=== PATIENT | female | born 2000 | race Caucasian/White ===

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

== ENCOUNTER 2022-08-08 17:18 | Emergency (ER) | payer MEDICAID ==
[~2022-08-08] VITALS: Ht 160 cm; Wt 77.3 kg
[~2022-08-08 17:18] MED LIST changes: +IBUP-1984 PO; +LEVO75TA7 PO; +LORA-269 PO; +NORE0.3552 PO; +OMEP20CA16 PO; -PRED20TA PO; +TRAZ-251
[2022-08-08 19:09] LABS: BASOPHILS # (AUTO) 0.1 X10'3 (0-0.2); BASOPHILS % (AUTO) 0.5 % (0-1); EOSINOPHILS # (AUTO) 0.2 X10'3 (0-0.9); EOSINOPHILS % (AUTO) 1.3 % (0-6); HEMATOCRIT 38.7 % (35.0-45.0); HEMOGLOBIN 13.2 g/dl (12.0-16.0); LYMPHOCYTES % (AUTO) 22.2 % (21-51); MEAN CORPUSCULAR HEMOGLOBIN 28.7 PG (27.0-31.0); MEAN CORPUSCULAR VOLUME 84.3 FL (78-98); MEAN PLATELET VOLUME 9.4 FL (7.4-10.4); MONOCYTES # (AUTO) 0.7 X10'3 (0-0.9); MONOCYTES % (AUTO) 5.2 % (2-12); NEUTROPHILS # (AUTO) 9.6 X10'3 (1.8-7.7); NEUTROPHILS % (AUTO) 70.8 % (42-75); PLATELET COUNT 285 X10'3 (140-440); RED BLOOD COUNT 4.59 X10'6 (4.20-5.60); RED CELL DISTRIBUTION WIDTH 14.6 % (11.5-14.5); WHITE BLOOD COUNT 13.5 X10'3 (4.5-11.0)
[2022-08-08 19:18] LABS: ALANINE AMINOTRANSFERASE 65 U/L (12-78); ALBUMIN 3.5 G/DL (3.4-5.0); ALBUMIN/GLOBULIN RATIO 0.7 (1.1-1.5); ALKALINE PHOSPHATASE 120 IU/L (46-116); ANION GAP 8 (8-16); ASPARTATE AMINO TRANSFERASE 43 U/L (10-37); BILIRUBIN,TOTAL 0.3 MG/DL (0.1-1.0); BLOOD UREA NITROGEN 11 MG/DL (7-18); BUN/CREATININE RATIO 15.1 (10.0-20.0); CHLORIDE 102 MMOL/L (99-107); CREATININE 0.73 MG/DL (0.40-0.90); GLUCOSE 115 MG/DL (70-104); POTASSIUM 3.6 MMOL/L (3.5-5.1); SODIUM 135 MMOL/L (135-145); TOTAL CARBON DIOXIDE 25.3 MMOL/L (24-32); TOTAL PROTEIN 8.3 G/DL (6.4-8.2); eGFR > 90 ML/MIN
[2022-08-08 19:28] LABS: ETHANOL < 0.010 GM/DL (0.0-0.010)
[2022-08-08] MEDS ORDERED: CARI3CAP PO (21:15)
--- NOTE | 2022-08-08 21:20 | NUR ---
The patient moved to bed 26 from the main ER hallway. She is very cooperative.
[2022-08-08 21:29] LABS: CLARITY,URINE CLEAR (Clear); COLOR,URINE STRAW (Yellow); GLUCOSE, URINE NEGATIVE (Neg); KETONES,URINE NEGATIVE (Neg); LEUKOCYTE ESTERASE ,URINE TRACE (Neg); NITRITES, URINE NEGATIVE (Neg); OCCULT BLOOD,URINE LARGE (Neg); PH,URINE 5.5 (4.8-8.0); PROTEIN,URINE NEGATIVE (Neg); UROBILINOGEN,URINE 0.2 E.U/dL (0.2-1.0)
[2022-08-08] MEDS ORDERED: LEVO100T PO (21:31)
[2022-08-08] MEDS ORDERED: LORA-269 PO (21:31)
[2022-08-08 21:32] LABS: UA COLLECTION TYPE CLN CATCH MIDSTREAM; URINE HCG NEGATIVE (NEG)
[2022-08-08 21:38] LABS: BACTERIA,URINE 1+ /HPF (Neg); SQUAMOUS EPITHELIAL CELL,UR FEW /LPF (FEW)
[2022-08-08] MEDS ORDERED: acetaminophen 325mg tablet PO ONE (21:40)
[2022-08-08 21:42] LABS: URINE AMPHETAMINE SCREEN NEGATIVE (Neg); URINE BARBITUATE SCREEN NEGATIVE (Neg); URINE BENZODIAZEPINES SCREEN NEGATIVE (Neg); URINE CANNABINOID SCREEN NEGATIVE (Neg); URINE COCAINE SCREEN NEGATIVE (Neg); URINE METHADONE SCREEN NEGATIVE (Neg); URINE OPIATE SCREEN NEGATIVE (Neg); URINE PHENCYCLIDINE SCREEN NEGATIVE (Neg)
[2022-08-08] MEDS ORDERED: LORazepam 1 MG tablet PO PRN (21:55)
[2022-08-08] MEDS ORDERED: LORazepam 0.5 MG tablet PO PRN (22:00)
--- NOTE | 2022-08-08 22:18 | NUR ---
packet sent to [facility]
[2022-08-08] MEDS ORDERED: CARIPRAZINE 1.5 MG CAPSULE PO SCH (22:40)
--- NOTE | 2022-08-09 01:24 | NUR ---
The patient appears to be sleeping
--- NOTE | 2022-08-09 03:08 | NUR ---
The patient appears to be sleeping
--- NOTE | 2022-08-09 05:19 | NUR ---
The patient appears to be sleeping
[2022-08-09 05:57] VITALS: BP 117/65
[2022-08-09] MEDS ORDERED: levoTHYROXINE 100mcg tablet PO SCH (08:00)
--- NOTE | 2022-08-09 11:50 | NUR ---
[facility] called and wanted to review patients current medication. Medications reviewed. Pt requesting anti-nausea and menstrual cramp relief medication. Message to Dr. Daley.
[2022-08-09] MEDS ORDERED: ondansetron 4mg rapidly disintigrating tab PO ONE (11:55)
[2022-08-09] MEDS ORDERED: ibuprofen tablet 400 MG TABLET PO ONE (12:00)
--- NOTE | 2022-08-09 12:52 | NUR ---
[facility] [place] called for a nurse to nurse report. [phone]
--- NOTE | 2022-08-09 13:27 | NUR ---
[facility] called for a nurse to nurse report on pt for possible acceptance.
--- NOTE | 2022-08-09 13:28 | NUR ---
[facility] called for nurse to nurse report. pT HAS BEEN TO THIS FACILTY PRIOR.
--- NOTE | 2022-08-09 14:04 | NUR ---
[facility] CALLED AND [facility]LE[facility]ARE IN [place] IS ACCEPTING PATIENT. [phone] ACCEPTED PT. PT TO BE TRANSFERRED SOON RIDE IS AVAILABLE.
--- NOTE | 2022-08-09 15:51 | NUR ---
[facility] HERE TO NEGATIVE TURNER APPRENTICE PATIENT TO TAKE HER TO [facility]. ORIGINAL 5150 GIVEN TO BINDERY MANAGER. BELONGINGS RETURNED TO PT WHO CHANGED INTO HER OWN CLOTHING. SECURITY HERE TO ESCORT PT TO AWAITING RIDE.
[2022-08-09] MEDS ORDERED: CARIPRAZINE 1.5 MG CAPSULE PO SCH (21:00)
== END 2022-08-09 15:58 ==
LOC: ER 17:20
DX: F32.A Depression, unspecified (principal); Z20.822 Contact with and (suspected) exposure to COVID-19; R45.851 Suicidal ideations; F41.9 Anxiety disorder, unspecified; F12.10 Cannabis abuse, uncomplicated; Z88.2 Allergy status to sulfonamides; Z88.5 Allergy status to narcotic agent; Z79.899 Other long term (current) drug therapy
CPT/HCPCS: 36415; 80053; 80305; 80320; 81001; 81025; 84443; 85025; 87811; 99285; A6223; A6258; A6449

== ENCOUNTER 2022-09-02 13:53 | Emergency (ER) | payer MEDICAID ==
[~2022-09-02] VITALS: Ht 157.5 cm; Wt 81.0 kg
[~2022-09-02 13:53] MED LIST changes: +CARI3CAP PO; -IBUP-1984 PO; +LEVO100T PO; -LEVO75TA7 PO; -NORE0.3552 PO; -OMEP20CA16 PO; -TRAZ-251
[2022-09-02 14:58] LABS: BASOPHILS # (AUTO) 0.1 X10'3 (0-0.2); BASOPHILS % (AUTO) 0.5 % (0-1); EOSINOPHILS # (AUTO) 0.2 X10'3 (0-0.9); EOSINOPHILS % (AUTO) 1.2 % (0-6); HEMATOCRIT 37.7 % (35.0-45.0); HEMOGLOBIN 12.2 g/dl (12.0-16.0); LYMPHOCYTES # (AUTO) 3.2 X10'3 (1.1-4.8); LYMPHOCYTES % (AUTO) 24.1 % (21-51); MEAN CORPUSCULAR HEMOGLOBIN 27.8 PG (27.0-31.0); MEAN CORPUSCULAR HGB CONC 32.4 g/dL (33.0-36.5); MEAN CORPUSCULAR VOLUME 85.9 FL (78-98); MEAN PLATELET VOLUME 9.3 FL (7.4-10.4); MONOCYTES # (AUTO) 0.7 X10'3 (0-0.9); MONOCYTES % (AUTO) 5.5 % (2-12); NEUTROPHILS # (AUTO) 9.3 X10'3 (1.8-7.7); NEUTROPHILS % (AUTO) 68.7 % (42-75); PLATELET COUNT 338 X10'3 (140-440); RED BLOOD COUNT 4.39 X10'6 (4.20-5.60); RED CELL DISTRIBUTION WIDTH 14.9 % (11.5-14.5); WHITE BLOOD COUNT 13.5 X10'3 (4.5-11.0)
[2022-09-02 15:15] LABS: ALANINE AMINOTRANSFERASE 50 U/L (12-78); ALBUMIN 3.7 G/DL (3.4-5.0); ALBUMIN/GLOBULIN RATIO 0.8 (1.1-1.5); ALKALINE PHOSPHATASE 119 IU/L (46-116); ANION GAP 8 (8-16); ASPARTATE AMINO TRANSFERASE 34 U/L (10-37); BILIRUBIN,TOTAL 0.3 MG/DL (0.1-1.0); BLOOD UREA NITROGEN 12 MG/DL (7-18); BUN/CREATININE RATIO 15.6 (10.0-20.0); CALCIUM 9.4 MG/DL (8.5-10.1); CHLORIDE 102 MMOL/L (99-107); CREATININE 0.77 MG/DL (0.40-0.90); GLUCOSE 90 MG/DL (70-104); LIPASE 73 U/L (73-393); POTASSIUM 3.8 MMOL/L (3.5-5.1); SODIUM 138 MMOL/L (135-145); TOTAL CARBON DIOXIDE 28.1 MMOL/L (24-32); TOTAL PROTEIN 8.5 G/DL (6.4-8.2); eGFR > 90 ML/MIN
[2022-09-02] MEDS ORDERED: ondansetron 4mg rapidly disintigrating tab PO ONE (16:05)
[2022-09-02 16:30] VITALS: BP 107/69
[2022-09-02 16:33] LABS: URINE HCG NEGATIVE (NEG)
[2022-09-02 16:39] LABS: CLARITY,URINE CLOUDY (Clear); COLOR,URINE YELLOW (Yellow); GLUCOSE, URINE NEGATIVE (Neg); KETONES,URINE NEGATIVE (Neg); LEUKOCYTE ESTERASE ,URINE TRACE (Neg); NITRITES, URINE POSITIVE (Neg); OCCULT BLOOD,URINE MODERATE (Neg); PROTEIN,URINE 100 mg/dl (Neg)
[2022-09-02 16:41] LABS: UA COLLECTION TYPE VOIDED
[2022-09-02 16:45] LABS: SQUAMOUS EPITHELIAL CELL,UR MANY /LPF (FEW)
[2022-09-02 16:46] LABS: BACTERIA,URINE 4+ /HPF (Neg); RBC,URINE TNTC /HPF (0-2); WBC,URINE TNTC /HPF (0-4)
[2022-09-02 16:47] LABS: COARSE GRANULAR CAST 0-3 /LPF (NEGATIVE)
--- NOTE | 2022-09-02 16:48 | NUR ---
REJECTED URINE FOR CULTURE
[2022-09-02] MEDS ORDERED: ONDA4TAB12 PO (17:13)
[2022-09-02] MEDS ORDERED: CEPH-585 PO (17:13)
== END 2022-09-02 17:41 | disposition home or self-care (01) ==
LOC: ER 13:54
DX: K92.0 Hematemesis (principal); N39.0 Urinary tract infection, site not specified; F31.9 Bipolar disorder, unspecified; F12.90 Cannabis use, unspecified, uncomplicated; Z88.2 Allergy status to sulfonamides; Z88.5 Allergy status to narcotic agent; E03.9 Hypothyroidism, unspecified
CPT/HCPCS: 36415; 80053; 81001; 81025; 83690; 85025; 99283

== ENCOUNTER 2023-02-03 16:25 | Emergency (ER) | payer MEDICAID ==
[~2023-02-03] VITALS: Ht 167.6 cm; Wt 83.0 kg
[~2023-02-03 16:25] MED LIST changes: +CEPH-585 PO; +ONDA4TAB12 PO
[2023-02-03] MEDS ORDERED: acetaminophen 1,000mg/100ml IV 100 ML IV STA (18:54)
[2023-02-03] MEDS ORDERED: normal saline 1000ML IV soln IVB ONE ×2 (18:55→21:30)
[2023-02-03] MEDS ORDERED: ondansetron/PF 4mg/2ml inj IV ONE (18:55)
[2023-02-03 18:57] LABS: BASOPHILS # (AUTO) 0.1 X10'3 (0-0.2); BASOPHILS % (AUTO) 0.4 % (0-1); EOSINOPHILS # (AUTO) 0.1 X10'3 (0-0.9); EOSINOPHILS % (AUTO) 0.9 % (0-6); HEMATOCRIT 43.6 % (35.0-45.0); HEMOGLOBIN 14.4 g/dl (12.0-16.0); LYMPHOCYTES # (AUTO) 1.4 X10'3 (1.1-4.8); LYMPHOCYTES % (AUTO) 11.2 % (21-51); MEAN CORPUSCULAR HEMOGLOBIN 28.2 PG (27.0-31.0); MEAN CORPUSCULAR HGB CONC 32.9 g/dL (33.0-36.5); MEAN CORPUSCULAR VOLUME 85.8 FL (78-98); MEAN PLATELET VOLUME 9.7 FL (7.4-10.4); MONOCYTES # (AUTO) 0.5 X10'3 (0-0.9); MONOCYTES % (AUTO) 4.2 % (2-12); NEUTROPHILS # (AUTO) 10.5 X10'3 (1.8-7.7); NEUTROPHILS % (AUTO) 83.3 % (42-75); PLATELET COUNT 264 X10'3 (140-440); RED BLOOD COUNT 5.09 X10'6 (4.20-5.60); RED CELL DISTRIBUTION WIDTH 15.9 % (11.5-14.5); WHITE BLOOD COUNT 12.6 X10'3 (4.5-11.0)
[2023-02-03 19:02] LABS: URINE HCG NEGATIVE (NEG)
[2023-02-03 19:05] LABS: BILIRUBIN,URINE SMALL (Neg); CLARITY,URINE TURBID (Clear); COLOR,URINE AMBER (Yellow); GLUCOSE, URINE NEGATIVE (Neg); KETONES,URINE NEGATIVE (Neg); LEUKOCYTE ESTERASE ,URINE MODERATE (Neg); NITRITES, URINE NEGATIVE (Neg); OCCULT BLOOD,URINE LARGE (Neg); PH,URINE 5.5 (4.8-8.0); PROTEIN,URINE 30 mg/dl (Neg); UROBILINOGEN,URINE 0.2 E.U/dL (0.2-1.0)
[2023-02-03 19:07] LABS: ALANINE AMINOTRANSFERASE 73 U/L (12-78); ALBUMIN 4.2 G/DL (3.4-5.0); ALBUMIN/GLOBULIN RATIO 0.8 (1.1-1.5); ALKALINE PHOSPHATASE 131 IU/L (46-116); ANION GAP 10 (8-16); ASPARTATE AMINO TRANSFERASE 48 U/L (10-37); BILIRUBIN,TOTAL 0.8 MG/DL (0.1-1.0); BLOOD UREA NITROGEN 12 MG/DL (7-18); BUN/CREATININE RATIO 12.5 (10.0-20.0); CALCIUM 9.6 MG/DL (8.5-10.1); CHLORIDE 101 MMOL/L (99-107); CREATININE 0.96 MG/DL (0.40-0.90); GLUCOSE 93 MG/DL (70-104); POTASSIUM 3.9 MMOL/L (3.5-5.1); SODIUM 136 MMOL/L (135-145); TOTAL PROTEIN 9.7 G/DL (6.4-8.2); eCRCL 86 ML/MIN; eGFR 73 ML/MIN
[2023-02-03 19:09] LABS: UA COLLECTION TYPE CLN CATCH MIDSTREAM
[2023-02-03 19:11] LABS: BACTERIA,URINE 4+ /HPF (Neg); MUCUS STRANDS FEW /LPF (Neg); SQUAMOUS EPITHELIAL CELL,UR MANY /LPF (FEW)
[2023-02-03 19:15] LABS: WBC,URINE TNTC /HPF (0-4)
[2023-02-03] MEDS ORDERED: CefTRIAXone/D5W-Rocephin 1gm 50 ML IV ONE (19:35)
[2023-02-03 19:37] LABS: BETA HCG,QUANTITATIVE < 1.0 mIU/ml
[2023-02-03 19:39] LABS: LIPASE 20 U/L (16-77)
[2023-02-03 22:30] VITALS: BP 130/83; PULSE 93; RESP 16; TEMP 98.5; O2SAT 98
[2023-02-03] MEDS ORDERED: ONDA4TAB12 PO (23:02)
[2023-02-03] MEDS ORDERED: CEPH-585 PO (23:02)
== END 2023-02-03 23:19 | disposition home or self-care (01) ==
LOC: ER 16:27
DX: N39.0 Urinary tract infection, site not specified (principal)
CPT/HCPCS: 36415; 74176; 80053; 81001; 81025; 83690; 84702; 85025; 86885; 86900; 86901; 87088; 96365; 96366; 96368; 96375; 99285; J0131; J0696; J2405; J7030

== ENCOUNTER 2023-12-21 09:32 | Emergency (ER) | payer MEDICAID ==
[~2023-12-21] VITALS: Ht 160 cm; Wt 90.2 kg
[~2023-12-21 09:32] MED LIST changes: +ONDA-243 PO; -ONDA4TAB12 PO
[2023-12-21 11:09] LABS: BASOPHILS # (AUTO) 0.1 X10'3 (0-0.2); EOSINOPHILS # (AUTO) 0.2 X10'3 (0-0.9); EOSINOPHILS % (AUTO) 1.9 % (0-6); HEMOGLOBIN 12.4 g/dl (12.0-16.0); LYMPHOCYTES # (AUTO) 2.1 X10'3 (1.1-4.8); LYMPHOCYTES % (AUTO) 21.9 % (21-51); MEAN CORPUSCULAR HEMOGLOBIN 27.1 PG (27.0-31.0); MEAN CORPUSCULAR HGB CONC 32.6 g/dL (33.0-36.5); MEAN CORPUSCULAR VOLUME 83.1 FL (78-98); MEAN PLATELET VOLUME 10.2 FL (7.4-10.4); MONOCYTES # (AUTO) 0.6 X10'3 (0-0.9); MONOCYTES % (AUTO) 5.7 % (2-12); NEUTROPHILS # (AUTO) 6.8 X10'3 (1.8-7.7); NEUTROPHILS % (AUTO) 69.5 % (42-75); PLATELET COUNT 284 X10'3 (140-440); RED BLOOD COUNT 4.57 X10'6 (4.20-5.60); RED CELL DISTRIBUTION WIDTH 15.3 % (11.5-14.5); WHITE BLOOD COUNT 9.7 X10'3 (4.5-11.0)
[2023-12-21 11:31] LABS: BILIRUBIN,URINE NEGATIVE (Neg); CLARITY,URINE SLIGHTLY CLOUDY (Clear); COLOR,URINE YELLOW (Yellow); GLUCOSE, URINE NEGATIVE (Neg); KETONES,URINE NEGATIVE (Neg); LEUKOCYTE ESTERASE ,URINE SMALL (Neg); NITRITES, URINE POSITIVE (Neg); OCCULT BLOOD,URINE SMALL (Neg); PH,URINE 6.5 (4.8-8.0); PROTEIN,URINE NEGATIVE (Neg); UROBILINOGEN,URINE 0.2 E.U/dL (0.2-1.0)
[2023-12-21 11:33] LABS: URINE HCG NEGATIVE (NEG)
[2023-12-21 11:35] LABS: UA COLLECTION TYPE CLN CATCH MIDSTREAM
[2023-12-21 11:39] LABS: BACTERIA,URINE 4+ /HPF (Neg); MUCUS STRANDS NONE SEEN /LPF (Neg); SQUAMOUS EPITHELIAL CELL,UR MODERATE /LPF (FEW); WBC CLUMPS,URINE FEW /HPF (NEGATIVE); WBC,URINE 30-50 /HPF (0-4)
[2023-12-21 11:56] LABS: URINE AMPHETAMINE SCREEN NEGATIVE (Neg); URINE BARBITUATE SCREEN NEGATIVE (Neg); URINE BENZODIAZEPINES SCREEN NEGATIVE (Neg); URINE CANNABINOID SCREEN POSITIVE (Neg); URINE COCAINE SCREEN NEGATIVE (Neg); URINE METHADONE SCREEN NEGATIVE (Neg); URINE OPIATE SCREEN NEGATIVE (Neg); URINE PHENCYCLIDINE SCREEN NEGATIVE (Neg)
[2023-12-21 12:32] LABS: ALBUMIN 3.3 G/DL (3.4-5.0); ANION GAP 11 (8-16); BLOOD UREA NITROGEN 13 MG/DL (7-18); BUN/CREATININE RATIO 15.5 (10.0-20.0); CALCIUM 8.9 MG/DL (8.5-10.1); CHLORIDE 97 MMOL/L (99-107); CREATININE 0.84 MG/DL (0.40-0.90); ETHANOL < 10 MG/DL (<10); GLUCOSE 110 MG/DL (70-104); POTASSIUM 3.4 MMOL/L (3.5-5.1); SALICYLATE 4.8 MG/DL (4.0-20.0); SODIUM 132 MMOL/L (135-145); THYROID STIMULATING HORMONE 16.39 ulU/ml (0.34-4.50); TOTAL CARBON DIOXIDE 23.7 MMOL/L (24-32); eCRCL 86 ML/MIN; eGFR 84 ML/MIN
[2023-12-21 12:44] LABS: ACETAMINOPHEN < 2.0 UG/ML (10-30)
[2023-12-21] MEDS ORDERED: LEVO100T9 PO (15:48)
[2023-12-21] MEDS ORDERED: CHOL500050 PO (15:48)
[2023-12-21 16:47] VITALS: BP 123/68; PULSE 97; RESP 14; TEMP 98.4; O2SAT 97
== END 2023-12-21 16:50 | disposition home or self-care (01) ==
LOC: ER 09:33
DX: T50.992A Poisoning by other drugs, medicaments and biological substances, intentional self-harm, initial encounter (principal); Z20.822 Contact with and (suspected) exposure to COVID-19; E03.9 Hypothyroidism, unspecified; F32.A Depression, unspecified; Z88.2 Allergy status to sulfonamides; Z79.899 Other long term (current) drug therapy; Z79.2 Long term (current) use of antibiotics; Y92.89 Other specified places as the place of occurrence of the external cause
CPT/HCPCS: 36415; 80048; 80305; 80320; 80329; 81001; 81025; 84443; 85025; 87811; 93005; 99285

== ENCOUNTER 2024-02-01 14:58 | Emergency (ER) | payer MEDICAID ==
[~2024-02-01] VITALS: Ht 157.5 cm; Wt 90.6 kg
[~2024-02-01 14:58] MED LIST changes: +CHOL500050 PO
[2024-02-01 15:21] VITALS: TEMP 98.2
[2024-02-01 15:37] LABS: BASOPHILS # (AUTO) 0.1 X10'3 (0-0.2); BASOPHILS % (AUTO) 0.4 % (0-1); EOSINOPHILS # (AUTO) 0.3 X10'3 (0-0.9); EOSINOPHILS % (AUTO) 2.7 % (0-6); HEMATOCRIT 35.4 % (35.0-45.0); HEMOGLOBIN 11.5 g/dl (12.0-16.0); LYMPHOCYTES # (AUTO) 2.7 X10'3 (1.1-4.8); LYMPHOCYTES % (AUTO) 22.5 % (21-51); MEAN CORPUSCULAR HEMOGLOBIN 27.4 PG (27.0-31.0); MEAN CORPUSCULAR HGB CONC 32.4 g/dL (33.0-36.5); MEAN CORPUSCULAR VOLUME 84.5 FL (78-98); MEAN PLATELET VOLUME 9.9 FL (7.4-10.4); MONOCYTES # (AUTO) 0.6 X10'3 (0-0.9); MONOCYTES % (AUTO) 4.7 % (2-12); NEUTROPHILS # (AUTO) 8.4 X10'3 (1.8-7.7); NEUTROPHILS % (AUTO) 69.7 % (42-75); PLATELET COUNT 295 X10'3 (140-440); RED BLOOD COUNT 4.18 X10'6 (4.20-5.60); RED CELL DISTRIBUTION WIDTH 15.9 % (11.5-14.5); WHITE BLOOD COUNT 12.1 X10'3 (4.5-11.0)
[2024-02-01 15:46] LABS: APTT 28 SECONDS (22-32); PROTHROMBIN TIME 10.5 SECONDS (9.0-12.0)
[2024-02-01 15:48] LABS: ALANINE AMINOTRANSFERASE 47 U/L (12-78); ALBUMIN 3.1 G/DL (3.4-5.0); ALBUMIN/GLOBULIN RATIO 0.7 (1.1-1.5); ALKALINE PHOSPHATASE 114 IU/L (46-116); ANION GAP 8 (8-16); ASPARTATE AMINO TRANSFERASE 28 U/L (10-37); BILIRUBIN,TOTAL 0.2 MG/DL (0.1-1.0); BLOOD UREA NITROGEN 13 MG/DL (7-18); BUN/CREATININE RATIO 13.1 (10.0-20.0); CALCIUM 8.6 MG/DL (8.5-10.1); CHLORIDE 105 MMOL/L (99-107); CREATININE 0.99 MG/DL (0.40-0.90); GLUCOSE 110 MG/DL (70-104); POTASSIUM 3.6 MMOL/L (3.5-5.1); SODIUM 140 MMOL/L (135-145); TOTAL CARBON DIOXIDE 27.3 MMOL/L (24-32); TOTAL PROTEIN 7.7 G/DL (6.4-8.2); eCRCL 70 ML/MIN; eGFR 70 ML/MIN
[2024-02-01 15:55] LABS: HCG SERUM QL NEGATIVE
[2024-02-01 19:01] LABS: BETA HCG,QUANTITATIVE < 1.0 mIU/ml
[2024-02-01 19:10] LABS: CLARITY,URINE CLOUDY (Clear); COLOR,URINE BROWN (Yellow)
[2024-02-01 19:13] LABS: URINE HCG NEGATIVE (NEG)
[2024-02-01 19:34] LABS: UA COLLECTION TYPE CLN CATCH MIDSTREAM
[2024-02-01 19:38] LABS: RBC,URINE TNTC /HPF (0-2); SQUAMOUS EPITHELIAL CELL,UR MANY /LPF (FEW)
[2024-02-01 19:41] LABS: BACTERIA,URINE 2+ /HPF (Neg); WBC,URINE 20-30 /HPF (0-4)
[2024-02-01 19:52] VITALS: BP 116/82; PULSE 92; RESP 16; O2SAT 99
[2024-02-04] MEDS ORDERED: CEFU250T95 PO (09:15)
== END 2024-02-01 21:11 | disposition home or self-care (01) ==
LOC: EEVIPCON 14:59 → ER 14:59
DX: N93.8 Other specified abnormal uterine and vaginal bleeding (principal); E03.9 Hypothyroidism, unspecified; E28.2 Polycystic ovarian syndrome; F12.90 Cannabis use, unspecified, uncomplicated; Z88.1 Allergy status to other antibiotic agents; Z88.2 Allergy status to sulfonamides; Z88.5 Allergy status to narcotic agent
CPT/HCPCS: 36415; 76856; 80053; 81001; 81025; 84702; 84703; 85025; 85610; 85730; 87077; 87088; 87186; 93976; 99284

== ENCOUNTER 2024-04-11 15:14 | Emergency (ER) | payer MEDICAID ==
[~2024-04-11] VITALS: Ht 157.5 cm; Wt 86.4 kg
[~2024-04-11 15:14] MED LIST changes: -CEPH-585 PO
[2024-04-11 16:44] LABS: BILIRUBIN,URINE NEGATIVE (Neg); CLARITY,URINE CLOUDY (Clear); COLOR,URINE YELLOW (Yellow); GLUCOSE, URINE NEGATIVE (Neg); KETONES,URINE NEGATIVE (Neg); LEUKOCYTE ESTERASE ,URINE MODERATE (Neg); NITRITES, URINE POSITIVE (Neg); OCCULT BLOOD,URINE NEGATIVE (Neg); PROTEIN,URINE NEGATIVE (Neg); UROBILINOGEN,URINE 0.2 E.U/dL (0.2-1.0)
[2024-04-11 16:46] LABS: UA COLLECTION TYPE VOIDED; URINE HCG NEGATIVE (NEG)
[2024-04-11 16:50] LABS: BACTERIA,URINE 4+ /HPF (Neg); MUCUS STRANDS MODERATE /LPF (Neg); RBC,URINE NONE SEEN /HPF (0-2); SQUAMOUS EPITHELIAL CELL,UR MANY /LPF (FEW)
[2024-04-11 16:59] LABS: URINE AMPHETAMINE SCREEN NEGATIVE (Neg); URINE BARBITUATE SCREEN NEGATIVE (Neg); URINE BENZODIAZEPINES SCREEN NEGATIVE (Neg); URINE CANNABINOID SCREEN POSITIVE (Neg); URINE COCAINE SCREEN NEGATIVE (Neg); URINE METHADONE SCREEN NEGATIVE (Neg); URINE OPIATE SCREEN NEGATIVE (Neg); URINE PHENCYCLIDINE SCREEN NEGATIVE (Neg)
[2024-04-11 17:02] LABS: BASOPHILS # (AUTO) 0.1 X10'3 (0-0.2); BASOPHILS % (AUTO) 0.6 % (0-1); EOSINOPHILS # (AUTO) 0.2 X10'3 (0-0.9); EOSINOPHILS % (AUTO) 1.9 % (0-6); HEMATOCRIT 34.8 % (35.0-45.0); HEMOGLOBIN 11.4 g/dl (12.0-16.0); LYMPHOCYTES # (AUTO) 2.9 X10'3 (1.1-4.8); LYMPHOCYTES % (AUTO) 24.5 % (21-51); MEAN CORPUSCULAR HEMOGLOBIN 26.5 PG (27.0-31.0); MEAN CORPUSCULAR HGB CONC 32.8 g/dL (33.0-36.5); MEAN CORPUSCULAR VOLUME 80.9 FL (78-98); MEAN PLATELET VOLUME 9.3 FL (7.4-10.4); MONOCYTES # (AUTO) 0.6 X10'3 (0-0.9); MONOCYTES % (AUTO) 4.9 % (2-12); NEUTROPHILS % (AUTO) 68.1 % (42-75); PLATELET COUNT 304 X10'3 (140-440); RED CELL DISTRIBUTION WIDTH 14.8 % (11.5-14.5); WHITE BLOOD COUNT 11.8 X10'3 (4.5-11.0)
[2024-04-11 17:23] LABS: ALBUMIN 3.3 G/DL (3.4-5.0); ANION GAP 6 (8-16); BLOOD UREA NITROGEN 15 MG/DL (7-18); BUN/CREATININE RATIO 15.8 (10.0-20.0); CALCIUM 8.7 MG/DL (8.5-10.1); CHLORIDE 106 MMOL/L (99-107); CREATININE 0.95 MG/DL (0.40-0.90); ETHANOL < 10 MG/DL (<10); GLUCOSE 111 MG/DL (70-104); POTASSIUM 3.8 MMOL/L (3.5-5.1); SODIUM 143 MMOL/L (135-145); THYROID STIMULATING HORMONE 8.75 ulU/ml (0.34-4.50); TOTAL CARBON DIOXIDE 31.4 MMOL/L (24-32); eCRCL 73 ML/MIN; eGFR 73 ML/MIN
[2024-04-11] MEDS: hydrOXYzine 25 MG tablet PO ONE (20:10)
[2024-04-11] MEDS: LORazepam 1 MG tablet PO ONE (20:10)
[2024-04-12 05:35] VITALS: BP 116/62; PULSE 79; O2SAT 98
[2024-04-12] MEDS ORDERED: LORazepam 0.5 MG tablet PO PRN (07:00)
[2024-04-12] MEDS: cholecalciferol (vitamin D3) 1,000 unit (25mcg) tablet PO SCH (08:00)
[2024-04-12] MEDS: levoTHYROXINE 100mcg tablet PO SCH (09:25)
[2024-04-12 11:18] VITALS: RESP 14
[2024-04-12 12:12] VITALS: TEMP 98.3
[2024-04-12] MEDS ORDERED: CARIPRAZINE 3 MG CAP PO SCH (21:00)
== END 2024-04-12 12:18 | disposition home or self-care (01) ==
LOC: ER 15:15
DX: T74.21XA Adult sexual abuse, confirmed, initial encounter (principal); R45.88 Nonsuicidal self-harm; S51.811A Laceration without foreign body of right forearm, initial encounter; S80.211A Abrasion, right knee, initial encounter; E03.9 Hypothyroidism, unspecified; F32.A Depression, unspecified; F12.90 Cannabis use, unspecified, uncomplicated; Z88.2 Allergy status to sulfonamides; Z88.5 Allergy status to narcotic agent; Z79.899 Other long term (current) drug therapy; Z20.822 Contact with and (suspected) exposure to COVID-19; Y93.89 Activity, other specified; Y92.89 Other specified places as the place of occurrence of the external cause; Y99.8 Other external cause status
CPT/HCPCS: 36415; 80048; 80305; 80320; 81001; 81025; 84443; 85025; 87811; 99285; Q0177

== ENCOUNTER 2024-09-08 12:37 | Emergency (ER) | payer MEDICAID ==
[~2024-09-08] VITALS: Ht 157.5 cm; Wt 87.3 kg
[2024-09-08 12:43] VITALS: BP 131/85; PULSE 101; TEMP 98.6; O2SAT 98
[2024-09-08 14:09] LABS: BASOPHILS # (AUTO) 0.1 X10'3 (0-0.2); BASOPHILS % (AUTO) 0.6 % (0-1); EOSINOPHILS # (AUTO) 0.2 X10'3 (0-0.9); EOSINOPHILS % (AUTO) 1.8 % (0-6); HEMATOCRIT 36.5 % (35.0-45.0); HEMOGLOBIN 11.8 g/dl (12.0-16.0); LYMPHOCYTES # (AUTO) 1.5 X10'3 (1.1-4.8); LYMPHOCYTES % (AUTO) 14.6 % (21-51); MEAN CORPUSCULAR HEMOGLOBIN 26.7 PG (27.0-31.0); MEAN CORPUSCULAR HGB CONC 32.4 g/dL (33.0-36.5); MEAN CORPUSCULAR VOLUME 82.5 FL (78-98); MEAN PLATELET VOLUME 9.7 FL (7.4-10.4); MONOCYTES # (AUTO) 0.5 X10'3 (0-0.9); MONOCYTES % (AUTO) 4.8 % (2-12); NEUTROPHILS # (AUTO) 8.1 X10'3 (1.8-7.7); NEUTROPHILS % (AUTO) 78.2 % (42-75); PLATELET COUNT 245 X10'3 (140-440); RED BLOOD COUNT 4.42 X10'6 (4.20-5.60); RED CELL DISTRIBUTION WIDTH 14.7 % (11.5-14.5); WHITE BLOOD COUNT 10.3 X10'3 (4.5-11.0)
[2024-09-08 14:29] LABS: ALANINE AMINOTRANSFERASE 50 U/L (12-78); ALBUMIN 3.2 G/DL (3.4-5.0); ALBUMIN/GLOBULIN RATIO 0.8 (1.1-1.5); ALKALINE PHOSPHATASE 116 IU/L (46-116); ANION GAP 6 (8-16); ASPARTATE AMINO TRANSFERASE 31 U/L (10-37); BILIRUBIN,TOTAL 0.3 MG/DL (0.1-1.0); BLOOD UREA NITROGEN 11 MG/DL (7-18); BUN/CREATININE RATIO 16.2 (10.0-20.0); CALCIUM 8.8 MG/DL (8.5-10.1); CHLORIDE 105 MMOL/L (99-107); CREATININE 0.68 MG/DL (0.40-0.90); GLUCOSE 99 MG/DL (70-104); LIPASE 20 U/L (16-77); POTASSIUM 4.3 MMOL/L (3.5-5.1); SODIUM 140 MMOL/L (135-145); TOTAL CARBON DIOXIDE 28.7 MMOL/L (24-32); TOTAL PROTEIN 7.4 G/DL (6.4-8.2); eCRCL 101 ML/MIN; eGFR > 90 ML/MIN
[2024-09-08 14:43] LABS: URINE HCG NEGATIVE (NEG)
[2024-09-08 14:45] LABS: BILIRUBIN,URINE NEGATIVE (Neg); CLARITY,URINE CLEAR (Clear); COLOR,URINE YELLOW (Yellow); GLUCOSE, URINE NEGATIVE (Neg); KETONES,URINE NEGATIVE (Neg); LEUKOCYTE ESTERASE ,URINE NEGATIVE (Neg); NITRITES, URINE NEGATIVE (Neg); OCCULT BLOOD,URINE TRACE-INTACT (Neg); PROTEIN,URINE NEGATIVE (Neg); UROBILINOGEN,URINE 0.2 E.U/dL (0.2-1.0)
[2024-09-08 14:53] LABS: UA COLLECTION TYPE CLN CATCH MIDSTREAM
[2024-09-08 14:54] LABS: BACTERIA,URINE NONE SEEN /HPF (Neg); RBC,URINE 0-2 /HPF (0-2); WBC,URINE NONE SEEN /HPF (0-4)
[2024-09-08 14:55] LABS: MUCUS STRANDS MODERATE /LPF (Neg); SQUAMOUS EPITHELIAL CELL,UR FEW /LPF (FEW); TRANSITIONAL EPI CELLS,URINE FEW /HPF
[2024-09-08] MEDS ORDERED: NAPR-56 PO (15:24)
--- NOTE | 2024-09-08 15:24 | Physician Documentation ---
History of Present Illness Chief Complaint: Flank Pain Stated Complaint: KIDNEY INFECTION Time Seen by MD: 13:15 Primary Medical Doctor: [facility] [place] HPI 24-year-old female presents to the ED with several days of lumbar pain. She states she was diagnosed with a kidney infection by her doctor. Placed on antibiotics. Also states that she has has nausea and and has difficulty holding food down. Denies any fevers however. He is that her lumbar region is tender to palpation.. Denies any acute injury. Day of Onset: September 08, 2024 Medication Reconciliation Allergies: Coded Allergies: Sulfa (Sulfonamide Antibiotics) (Verified Allergy, Unknown, 09/08/24) morphine (Verified Allergy, Unknown, 09/08/24) Uncoded Allergies: ESTROGEN (Allergy, Unknown, 12/18/19) Scheduled Cariprazine Hydrochloride (Vraylar), 1 CAP PO HS, (Reported) Cholecalciferol (Vitamin D3) (Vitamin D3), 1 CAP PO DAILY, (Reported) Levothyroxine Sodium (Synthroid), 1 TAB PO DAILY, (Reported) Naproxen (Naproxen), 1 TAB PO Q12H Scheduled PRN Lorazepam (Ativan), 0.5 TAB PO DAILY PRN for for anxiety/agitation, (Reported) ONDANSETRON ODT 4mg tablet (Ondansetron Odt), 1 TABLET PO Q6H PRN for nausea/vomiting ONDANSETRON ODT 4mg tablet (Ondansetron Odt), 1 TABLET PO Q6H PRN for nausea/vomiting ONDANSETRON ODT 4mg tablet (Ondansetron Odt), 1 TAB PO Q6H PRN PRN for nausea/vomiting Past Medical History Past Medical History: Hypothyroidism, Bipolar, Depression Past Surgical History: no surgical history Alcohol Use: None Drug Use: marijuana Lives with: Father Lives In: Home Occupation: employed Review of Systems All Other Systems at this time: Reviewed and Negative ROS As stated above in the HPI, otherwise all systems are reviewed and negative. Physical Exam Vital Signs: Temperature: 98.6, Source: Oral, Heart Rate: 101, Respiratory Rate: 18, BP: 131/85, Pulse Oximetry: 98, Weight: 87.270 Physical Exam General: Alert, no apparent distress. back: Tender to palpation in the whole lower lumbar region Respiratory: Lungs clear, no respiratory distress. Neurologic: Oriented x4. Psychiatric: Normal mood and affect. Skin: Normal color, warm and dry. No edema, no ecchymosis. Progress Results/Orders Results/Orders Orders - BENNY LAMB V[employer] AND SOUND RECORDER Ondansetron Disint. Tablet (Zofran Odt T (09/08/24 15:20) Ketorolac Trometh 15mg/Ml Vial (Toradol (09/08/24 15:20) Completed Orders - BENNY LAMB [employer] RECORDER Hcg, Ur Ql (09/08/24 13:37) Cbc/Diff (09/08/24 13:37) BMP (09/08/24 13:37) Lipase (09/08/24 13:37) CMP (09/08/24 13:37) Ua W/Microscopic, Cult If Ind (09/08/24 14:10) Vital Signs 09/08/24 12:43 Temp 98.6 Pulse 101 Resp 18 B/P (MAP) 131/85 Pulse Ox 98 Laboratory Tests Test 09/08/24 13:57 09/08/24 14:10 White Blood Count 10.3 Red Blood Count 4.42 Hemoglobin 11.8 L Hematocrit 36.5 Mean Corpuscular Volume 82.5 Mean Corpuscular Hemoglobin 26.7 L Mean Corpuscular Hemoglobin Concent 32.4 L Red Cell Distribution Width 14.7 H Platelet Count 245 Mean Platelet Volume 9.7 Neutrophils (%) (Auto) 78.2 H Lymphocytes (%) (Auto) 14.6 L Monocytes (%) (Auto) 4.8 Eosinophils (%) (Auto) 1.8 Basophils (%) (Auto) 0.6 Neutrophils # (Auto) 8.1 H Lymphocytes # (Auto) 1.5 Monocytes # (Auto) 0.5 Eosinophils # (Auto) 0.2 Basophils # (Auto) 0.1 CBC Comment Sodium Level 140 Potassium Level 4.3 Chloride Level 105 Carbon Dioxide Level 28.7 Anion Gap 6 L Blood Urea Nitrogen 11 Creatinine 0.68 Estimated GFR/1.73 m2 > 90 BUN/Creatinine Ratio 16.2 Glucose Level 99 Calcium Level 8.8 Total Bilirubin 0.3 Aspartate Amino Transf (AST/SGOT) 31 Alanine Aminotransferase (ALT/SGPT) 50 Alkaline Phosphatase 116 Total Protein 7.4 Albumin 3.2 L Globulin 4.2 Albumin/Globulin Ratio 0.8 L Lipase 20 Chemistry Comments Urine Specimen Description Cln catch midstream Urine Color Yellow Urine Clarity Clear Urine pH 6.0 Urine Specific [place] 1.010 Urine Protein Negative Urine Glucose (UA) Negative Urine Ketones Negative Urine Occult Blood Trace-intact Urine Nitrite Negative Urine Bilirubin Negative Urine Urobilinogen 0.2 Urine Leukocyte Esterase Negative Urine RBC 0-2 Urine WBC None seen Urine Squamous Epithelial Cells Few Urine Transitional Epithelial Cells Few Urine Bacteria None seen Urine Mucus Moderate Urine Culture Indicated Not ind Volume Urine Centrifuged 10 ml Urine HCG, Qualitative Negative Urine Comment Medical Decision Making Findings Patient's laboratory values were overall very reassuring in her urinalysis did not show any signs of infection. Based on my examination I am more suspicious of lumbar strain or lumbar injury as with only minor palpation she would react in pain. Gave her some Zofran and Toradol with the advice to rest at home for the next coming days. . You not see any reason for further evaluation as there are no sign of kidney infection UTI kidney stones. Differential Dx:Considerations: Include: AAA, -Complete, - Incomplete, -Inevitable, -Missed, -Threatened, Abruptio placentae, Angina/MN, Aortic dissection, Appendicitis, Bowel obstruction, Cholangitis, Cholelithasis, Constipation, Diverticular disease, Esophageal rupture, Esophagitis, Gastritis/PUD, Gastroenteritis, GI hemorrhage, Hernia, Hepatitis, Inflammatory BD, Ischemic bowel, Ovarian cyst/torsion, Pancreatitis, PID, Porphyria, Trauma, intraabdominal, Urinary obstruction, Urinary tract infection, Urolithiasis, Other Departure Disposition: 01 HOME / SELF CARE / HOMELESS Impression: Primary Impression: Strain of lumbar region Condition: Stable Discharge Instructions: Lumbosacral Strain, Chronic Back Pain Referrals: NO PRIMARY CARE PROVIDER (PCP) Prescriptions ONDANSETRON ODT 4mg tablet (ONDANSETRON ODT) 4 Mg Tab.rapdis 1 TAB PO Q6H PRN PRN for nausea/vomiting for 4 Days, #16 TAB 0 Refills Prov: BENNY LAMB NP 09/08/24 Naproxen (Naproxen) 500 Mg Tablet 1 TAB PO Q12H, #20 TAB Prov: BENNY LAMB V[employer] AND SOUND RECORDER 09/08/24 Education Educated: Patient Educated regarding: diagnosis Signature Scribe Signature: t Attestation: The note accurately reflects work and decisions made by me.Benny Jackson NP 09/08/24 18:38 BENNY LAMB NP September 08, 2024 15:24
[2024-09-08] MEDS: ondansetron 4mg rapidly disintigrating tab PO ONE (15:41)
[2024-09-08 15:42] VITALS: RESP 18
[2024-09-08] MEDS: ketorolac trometh 15mg/ml vial 15 MG/ML ML IM ONE (15:42)
[2024-09-08] MEDS ORDERED: ONDA-243 PO (15:42)
== END 2024-09-08 16:31 | disposition home or self-care (01) ==
LOC: ER 12:37
DX: S39.012A Strain of muscle, fascia and tendon of lower back, initial encounter (principal); F32.A Depression, unspecified; F12.90 Cannabis use, unspecified, uncomplicated; E03.9 Hypothyroidism, unspecified; Z88.2 Allergy status to sulfonamides; Z88.5 Allergy status to narcotic agent; Z79.899 Other long term (current) drug therapy; X58.XXXA Exposure to other specified factors, initial encounter; Y93.89 Activity, other specified; Y92.89 Other specified places as the place of occurrence of the external cause; Y99.8 Other external cause status
CPT/HCPCS: 36415; 80053; 81001; 81025; 83690; 85025; 96372; 99283; J1885

== ENCOUNTER 2025-03-08 12:10 | Emergency (ER) | payer MEDICAID ==
[~2025-03-08] VITALS: Ht 160 cm; Wt 83.3 kg
[2025-03-08 13:02] LABS: MEAN PLATELET VOLUME 9.8 FL (7.4-10.4); RED CELL DISTRIBUTION WIDTH 15.2 % (11.5-14.5)
[2025-03-08 13:14] LABS: CREATININE 0.81 MG/DL (0.40-0.90); TOTAL CARBON DIOXIDE 29.1 MMOL/L (24-32); eCRCL 89 ML/MIN; eGFR 87 ML/MIN
[2025-03-08 14:43] LABS: LEUKOCYTE ESTERASE ,URINE TRACE (Neg); NITRITES, URINE NEGATIVE (Neg); OCCULT BLOOD,URINE TRACE-INTACT (Neg); URINE HCG NEGATIVE (NEG)
[2025-03-08 14:44] LABS: UA COLLECTION TYPE CLN CATCH MIDSTREAM
[2025-03-08 14:51] LABS: SQUAMOUS EPITHELIAL CELL,UR MANY /LPF (FEW)
[2025-03-08 14:52] LABS: MUCUS STRANDS FEW /LPF (Neg)
--- NOTE | 2025-03-08 16:46 | Physician Documentation ---
History of Present Illness ~ Chief Complaint: Flank Pain Stated Complaint: KIDNEY INFECTION Time Seen by MD: 15:45 Primary Medical Doctor: [facility] Source: patient Mode of Arrival: POV, Ambulatory Exam Limitations: no limitations HPI 24 y/o with chief complaint lower back pain which she has self-diagnosed herself with having a kidney infection. She states her symptoms started about two weeks ago. She did see your primary care provider who prescribed her an antibiotic which she can not recall the name of. She states she took it for 10 days but her symptoms are unchanged. She states the pain is causing her to be nauseated and has had episodes of vomiting. She has no fever or chills. 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 Medication Reconciliation Allergies: Coded Allergies: Sulfa (Sulfonamide Antibiotics) (Verified Allergy, Unknown, 03/08/25) morphine (Verified Allergy, Unknown, 03/08/25) Uncoded Allergies: ESTROGEN (Allergy, Unknown, 12/18/19) Scheduled Cariprazine Hydrochloride (Vraylar), 1 CAP PO HS, (Reported) Cholecalciferol (Vitamin D3) (Vitamin D3), 1 CAP PO DAILY, (Reported) Levothyroxine Sodium (Synthroid), 1 TAB PO DAILY, (Reported) Scheduled PRN Lorazepam (Ativan), 0.5 TAB PO DAILY PRN for for anxiety/agitation, (Reported) ONDANSETRON ODT 4mg tablet (Ondansetron Odt), 1 TABLET PO Q6H PRN for nausea/vomiting ONDANSETRON ODT 4mg tablet (Ondansetron Odt), 1 TABLET PO Q6H PRN for nausea/vomiting ONDANSETRON ODT 4mg tablet (Ondansetron Odt), 1 TAB PO Q6H PRN PRN for nausea/vomiting Past Medical History Past Medical History: No Pertinent History, Hypothyroidism, Chronic Back Pain, Bipolar, Depression Past Surgical History: no surgical history Smoking Status: Never smoker Alcohol Use: None Drug Use: marijuana Lives with: Father Lives In: Home Occupation: employed Review of Systems All Other Systems at this time: Reviewed and Negative Physical Exam Physical Exam Vital Signs: Temperature: 98.5, Source: Oral, Heart Rate: 122, Respiratory Rate: 18, BP: 136/69, Pulse Oximetry: 98, Weight: 83.300 Oxygen Flow Rate: 0 Physical Exam GENERAL: Alert, no acute distress. HEENT: NCAT, EOMI, PERRL, normal oropharynx, moist oral mucosa. NECK: Supple, trachea midline. CARDIAC: Regular rate and rhythm, no murmurs, rubs, or gallops. Equal distal pulses. No lower extremity edema, cap refill less than 2 seconds. RESPIRATORY: Equal breath sounds, clear to auscultation bilaterally, no respiratory distress. GASTROINTESTINAL: Normoactive bowel sounds x4 quadrants, non distended, soft, NTTP. No guarding or rebound. MUSCULOSKELETAL: TTP OVER LUMBAR PARASPINAL MUSCLES AND SI JOINTS BILATERALLY. NO CVA TTP. Normal range of motion, nontender, no swelling. Normal gait. NEUROLOGICAL: Awake, alert, and oriented x 3. SKIN: Warm/dry, no pallor, no rash. PSYCH: Alert and appropriate. Affect congruent with mood. Speech is clear. Good eye contact. Progress Results/Orders Results/Orders Completed Orders - KATH SCOTT Urinalysis, Cult If Indicated (03/08/25 16:31) Vital Signs 03/08/25 03/08/25 03/08/25 03/08/25 12:11 14:28 14:47 16:30 Temp 100.3 98.5 Pulse 125 128 122 Resp 18 18 18 18 B/P (MAP) 151/95 136/69 (91) Pulse Ox 98 96 98 O2 Flow Rate 0 0 0 03/08/25 17:51 Temp 99.7 Pulse 65 Resp 18 B/P (MAP) 120/64 Pulse Ox 98 Laboratory Tests Test 03/08/25 12:15 03/08/25 12:44 03/08/25 16:25 Urine Specimen Description Cln catch midstream Cln catch midstream Urine Color Yellow Yellow Urine Clarity Slightly cloudy Clear Urine pH 8.0 7.5 Urine Specific [place] 1.020 1.020 Urine Protein Negative Negative Urine Glucose (UA) Negative Negative Urine Ketones Negative 40 H Urine Occult Blood Trace-intact Negative Urine Nitrite Negative Negative Urine Bilirubin Negative Negative Urine Urobilinogen 0.2 0.2 Urine Leukocyte Esterase Trace H Negative Urine RBC 0-2 Urine WBC 0-4 Urine Squamous Epithelial Cells Many Urine Bacteria Few Urine Mucus Few Urine Culture Indicated Rejected for culture Not ind Volume Urine Centrifuged 10 ml 10 ml Urine HCG, Qualitative Negative Urine Comment White Blood Count 7.6 Red Blood Count 4.84 Hemoglobin 13.2 Hematocrit 39.4 Mean Corpuscular Volume 81.4 Mean Corpuscular Hemoglobin 27.2 Mean Corpuscular Hemoglobin Concent 33.4 Red Cell Distribution Width 15.2 H Platelet Count 236 Mean Platelet Volume 9.8 Neutrophils (%) (Auto) 85.8 H Lymphocytes (%) (Auto) 6.9 L Monocytes (%) (Auto) 5.8 Eosinophils (%) (Auto) 1.0 Basophils (%) (Auto) 0.5 Neutrophils # (Auto) 6.5 Lymphocytes # (Auto) 0.5 L Monocytes # (Auto) 0.4 Eosinophils # (Auto) 0.1 Basophils # (Auto) 0.0 CBC Comment Sodium Level 134 L Potassium Level 4.5 Chloride Level 101 Carbon Dioxide Level 29.1 Anion Gap 4 L Blood Urea Nitrogen 12 Creatinine 0.81 Estimated GFR/1.73 m2 87 BUN/Creatinine Ratio 14.8 Glucose Level 96 Calcium Level 8.9 Total Bilirubin 0.5 Aspartate Amino Transf (AST/SGOT) 34 Alanine Aminotransferase (ALT/SGPT) 44 Alkaline Phosphatase 116 Total Protein 8.7 H Albumin 3.8 Globulin 4.9 H Albumin/Globulin Ratio 0.8 L Lipase 20 Chemistry Comments Medical Decision Making Additional information obtaine: N/A Findings N/A Differential Dx:Considerations: Aortic dissection, , Appendicitis, Bowel obstruction, Cholelithiasis, Cholangitis, DJD, Ectopic , Fracture, Hepatitis, HNP, Musculoskeletal pain, Pancreatitis, Pyelonephritis, Strain, Urinary obstruction, Urolithiasis, Ovarian torsion, Renal infarction, Urinary tract infection Differential Diagnosis PATIENT'S PAIN IS OVER HER LUMBAR SPINE AND SI JOINTS SHE DOES NOT HAVE ANY TENDERNESS OVER HER KIDNEYS NO CVA TENDERNESS. SHE REPORTS THAT SHE BELIEVES THAT THE NAUSEA AND VOMITING IS DUE TO HER BACK PAIN. SHE HAS NOT HAD ANY EVIDENCE FOR NAUSEA HERE, NO VOMITING. PATIENT IS AFEBRILE, NONTOXIC, WHITE COUNT NORMAL. Departure Time of Disposition: 17:29 Disposition: 01 HOME / SELF CARE / HOMELESS Impression: Primary Impression: Low back pain Qualified Codes: M54.50 - Low back pain, unspecified Condition: Stable Discharge Instructions: Lumbosacral Strain Additional Instructions: f/u with pcp your urine was negative your labs where normal Departure Forms: Excuse form Work or School Excused From: Work Excuse beginning now through the following date: Mar 10, 2025 May Return but still avoid physical Activity from now until: Mar 11, 2025 Referrals: NO PRIMARY CARE PROVIDER (PCP) Education Educated: Patient Educated regarding: diagnosis, treatment, need for follow up Signature Scribe Signature: X Attestation: KATH AVILA Mar 08, 2025 16:46
[2025-03-08 17:05] LABS: LEUKOCYTE ESTERASE ,URINE NEGATIVE (Neg); NITRITES, URINE NEGATIVE (Neg); OCCULT BLOOD,URINE NEGATIVE (Neg)
[2025-03-08 17:09] LABS: UA COLLECTION TYPE CLN CATCH MIDSTREAM
[2025-03-08 17:51] VITALS: BP 120/64; PULSE 65; RESP 18; TEMP 99.7; O2SAT 98
== END 2025-03-08 17:54 | disposition home or self-care (01) ==
LOC: ER 12:11
DX: M54.50 Low back pain, unspecified (principal); F31.9 Bipolar disorder, unspecified; G89.29 Other chronic pain; F12.90 Cannabis use, unspecified, uncomplicated; Z87.440 Personal history of urinary (tract) infections; Z88.2 Allergy status to sulfonamides; Z88.5 Allergy status to narcotic agent; Z79.899 Other long term (current) drug therapy
CPT/HCPCS: 36415; 80053; 81001; 81003; 81025; 83690; 85025; 99283; J7030

== ENCOUNTER 2025-04-12 18:11 | Emergency (ER) | payer MEDICAID ==
[~2025-04-12] VITALS: Ht 157.5 cm; Wt 81.8 kg
[2025-04-12 18:15] VITALS: TEMP 98.4
--- NOTE | 2025-04-12 19:12 | RADIOLOGY REPORT ---
CHEST RADIOGRAPH INDICATION: Chest tightness TECHNIQUE: Single frontal view of the chest was obtained COMPARISON: CHEST,SINGLE VIEW on DOS: 03/17/19 FINDINGS: Lines and Tubes: None Lungs: No focal consolidation. Pleura: No effusion. No pneumothorax. Cardiomediastinal contours: Unremarkable Bones: No acute osseous abnormality. IMPRESSION: No acute cardiopulmonary disease.
--- NOTE | 2025-04-12 20:22 | Physician Documentation ---
History of Present Illness Chief Complaint: See Chief Complaint Stated Complaint: THROAT PAIN Time Seen by MD: 18:34 Primary Medical Doctor: [facility] ER HPI Very pleasant 24-year-old female that presents to the emergency department after being referred by [facility] ernestine bowens. Patient presents to the [facility] with complaints of sore throat times several days. Patient reports the sore throat has become progressively worse. Patient reports that it hurts to swallow. Patient denies difficulty swallowing or any airway complications at this time. But does report painful swallowing. Re-injury reports that her strep was negative prior to sending her here patient also reports that she has a little bit of chest discomfort and a cough. Chest x-ray is negative for any concern for pneumonia or airway abnormality at this time. At this time patient would like to have a work note for today and tomorrow and will go home and return if she has any worsening of her symptoms or any additional concerning symptoms that we discussed here today. Medication Reconciliation Allergies: Coded Allergies: Sulfa (Sulfonamide Antibiotics) (Verified Allergy, Unknown, 04/12/25) morphine (Verified Allergy, Unknown, 04/12/25) Uncoded Allergies: ESTROGEN (Allergy, Unknown, 12/18/19) Scheduled Cariprazine Hydrochloride (Vraylar), 1 CAP PO HS, (Reported) Cholecalciferol (Vitamin D3) (Vitamin D3), 1 CAP PO DAILY, (Reported) Levothyroxine Sodium (Synthroid), 1 TAB PO DAILY, (Reported) Scheduled PRN Lorazepam (Ativan), 0.5 TAB PO DAILY PRN for for anxiety/agitation, (Reported) ONDANSETRON ODT 4mg tablet (Ondansetron Odt), 1 TABLET PO Q6H PRN for nausea/vomiting ONDANSETRON ODT 4mg tablet (Ondansetron Odt), 1 TABLET PO Q6H PRN for nausea/vomiting ONDANSETRON ODT 4mg tablet (Ondansetron Odt), 1 TAB PO Q6H PRN PRN for nausea/vomiting Past Medical History Past Medical History: No Pertinent History, Hypothyroidism, Chronic Back Pain, Bipolar, Depression Past Surgical History: no surgical history Smoking Status: Never smoker Alcohol Use: None Drug Use: marijuana Lives with: Father Lives In: Home Occupation: employed Review of Systems ROS As stated above in the HPI, otherwise all systems are reviewed and negative. Physical Exam Vital Signs: Temperature: 98.4, Source: Temporal, Heart Rate: 100, Respiratory Rate: 16, BP: 138/91, Pulse Oximetry: 99, Weight: 81.820 Oxygen Flow Rate: 0 Physical Exam VITALS: Reviewed and as above. GENERAL: Alert, no apparent distress. HEENT: Normocephalic, atraumatic, PERRL, EOMI, dry mucosa, no posterior oropharynx erythema or exudate noted, no difficulty swallowing noted no airway complications were concerned noted on examination. RESPIRATORY: Lungs clear, normal breath sounds, no respiratory distress. CHEST: No accessory muscle use, no retractions CV: Regular rate, rhythm, no edema, no murmur, No: JVD GI: Soft, non-tender, bowels sounds present, no rebound, guarding, or rigidity BACK: No CVA tenderness, or swelling MUSCULOSKELETAL No deformities, no edema SKIN: Warm and dry, no rash NEURO: Oriented x4, No motor or sensory deficit PSYCH: Normal mood and affect, no agitation Progress Results/Orders Results/Orders Orders - ROBERT BEST [employer] Chest,Single View (04/12/25 18:58) Completed Orders - ROBERT BEST [employer] Chest,Single View (04/12/25 18:58) Vital Signs 04/12/25 18:15 Temp 98.4 Pulse 100 Resp 16 B/P (MAP) 138/91 Pulse Ox 99 O2 Flow Rate 0 Medical Decision Making Additional information obtaine: other Findings Chief Complaint: Sore throat History of Present Illness: 24-year-old female presenting with several days of progressively worsening sore throat with painful swallowing (odynophagia). No fever, no airway compromise, no difficulty breathing, no drooling, no neck swelling or tenderness. Patient requests work excuse for today and tomorrow. Diagnostic Testing: Rapid strep test: Negative Chest X-ray: Negative Vital signs: Within normal limits, afebrile Assessment and Clinical Reasoning: Acute viral pharyngitis. The patient's presentation is most consistent with viral pharyngitis. Most pharyngitis cases (25-45%) are viral in etiology, with common causes including rhinovirus, coronavirus, adenovirus, and other respiratory viruses. [1] The negative rapid strep test excludes group A streptococcal pharyngitis, the predominant bacterial pathogen requiring antibiotic therapy. In adults, the Infectious Diseases Society of [place] guidelines support exclusion of streptococcal pharyngitis based on negative rapid antigen testing without confirmatory throat culture, given the generally high specificity of these tests. Only 10-15% of adults with acute pharyngitis have group A streptococcal infection, and antibiotics are warranted only in patients with proven bacterial etiology. [1-3] The absence of fever, normal vital signs, and lack of concerning features such as difficulty swallowing beyond pain, drooling, neck tenderness, or swelling a rgue against serious complications such as peritonsillar abscess, parapharyngeal abscess, or epiglottitis. [1] Plan: Symptomatic management with analgesics (acetaminophen, ibuprofen, or throat lozenges) for pain relief [1] No antibiotics indicated given negative strep test and viral etiology [1] Work excuse provided for today and tomorrow Patient counseled that typical course of viral sore throat is less than 1 week [1] Return precautions: Return to ED or seek medical attention if symptoms worsen, new concerning symptoms develop (difficulty breathing, drooling, inability to swallow, high fever, severe neck pain or swelling), or symptoms persist beyond 5-7 days Disposition: Discharge home with return precautions as above. Differential Dx:Considerations: Other, N/A Departure Disposition: 01 HOME / SELF CARE / HOMELESS Impression: Primary Impression: Pharyngitis Condition: Stable Additional Instructions: our Diagnosis: You have been diagnosed with viral pharyngitis (a viral sore thr oat). Your strep test was negative, which means you do not have a bacterial infection that requires antibiotics. What to Expect: Most sore throats caused by viruses get better on their own within less than one week. Your symptoms should gradually improve over the next few days. [1] How to Feel Better at Home: Pain relief: Take acetaminophen (Tylenol) or ibuprofen (Advil, Motrin) as needed for throat pain and discomfort. Follow the directions on the bottle. [1] Other comfort measures: You may also try throat lozenges, warm salt water gargles, or other soothing remedies to help with pain. [1] Rest and fluids: Get plenty of rest and drink fluids to stay hydrated. Work Note: You have been provided a work excuse for today and tomorrow. When to Return to the Emergency Department: Seek immediate medical attention if you develop any of the following: Difficulty breathing or shortness of breath Difficulty swallowing (not just pain when swallowing, but actual inability to swallow liquids or your own saliva) Drooling or inability to manage your saliva Severe neck pain, tenderness, or swelling High fever (temperature over 101F or 38.3C) Worsening symptoms despite treatment New or concerning symptoms such as severe headache, stiff neck, rash, or chest pain Symptoms lasting more than 5-7 days without improvement [1] These warning signs could indicate a more serious infection such as a throat abscess or other complication that needs immediate evaluation. [1] Follow-Up Care: Please follow up with your primary care provider as needed. If you do not have a primary care provider, consider establishing care with one for ongoing health needs. Important Reminders: Antibiotics are not helpful for viral sore throats and can cause side effects. [1] You should start feeling better within a few days. If not, please seek medical attention. If you have any concerns about your breathing, swallowing, or if your symptoms worsen, do not waitreturn to the emergency department immediately. Departure Forms: Excuse form Work or School Excused From: Work Excuse beginning now through the following date: Apr 14, 2025 May Return but still avoid physical Activity from now until: Apr 14, 2025 Referrals: NO PRIMARY CARE PROVIDER (PCP) Education Educated: Patient Educated regarding: diagnosis, treatment, need for follow up Signature Scribe Signature: A Attestation: Scribed for Robert Best by MARINE Robledo . 04/12/25 20:24 ROBERT BEST Apr 12, 2025 20:22
[2025-04-12 20:34] VITALS: BP 136/90; PULSE 99; RESP 18; O2SAT 99
== END 2025-04-12 20:37 | disposition home or self-care (01) ==
LOC: ER 18:11
DX: J02.9 Acute pharyngitis, unspecified (principal); F32.A Depression, unspecified; F12.90 Cannabis use, unspecified, uncomplicated; Z88.2 Allergy status to sulfonamides; Z88.5 Allergy status to narcotic agent
CPT/HCPCS: 71045; 99283